=== PATIENT | female | born 1990 | race Caucasian/White ===

== ENCOUNTER 2017-10-20 12:54 | Emergency (ER) | payer BC ==
[2017-10-20 14:12] VITALS: BP 140/76
--- NOTE | 2017-10-20 14:24 | UC ---
Throat Pain/Nasal Nicolás HPI - HPI Summary HPI Summary: sore throat x 1 day pain is sever, no fever, no chills, no cold sx daughter was dx with strep yesterday - History of Current Complaint Chief Complaint: UCGeneralIllness Stated Complaint: SORE THROAT Time Seen by Provider: 10/20/17 13:54 Hx Obtained From: Patient Hx Last Menstrual Period: unknown Onset/Duration: Gradual Onset, Lasting Days - 1, Still Present Severity: Moderate Pain Intensity: 5 Cough: None Associated Signs & Symptoms: Negative: FB Sensation, Drooling, Wheezing, Hoarseness, Sinus Discomfort, Nasal Discharge, Fever, Vomiting, Rash - Allergies/Home Medications Allergies/Adverse Reactions: Allergies Allergy/AdvReac Type Severity Reaction Status Date / Time No Known Allergies Allergy Verified 10/20/17 14:05 Home Medications: Home Medications Acetaminophen 1 tab PO Q4HR PRN 10/20/17 [History Confirmed 10/20/17] Baclofen TAB* [Lioresal TAB*] 20 mg PO TID PRN 10/20/17 [History Confirmed 09/07] Oxycodone HCl 5 mg PO Q6HR PRN 10/20/17 [History Confirmed 10/20/17] l-Norgest/E.estradiol-E.estrad [Seasonique 0.15-0.03-0.01 Tab] 1 tab PO DAILY [History Confirmed 10/20/17] PMH/Surg Hx/FS Hx/Imm Hx Previously Healthy: Yes Other History Of: Negative For: HIV, Hepatitis B, Hepatitis C - Surgical History Surgical History: Yes Surgery Procedure, Year, and Place: 2011 OVARIAN CYST REMOVED; Botox injection into pelvic floor - Family History Known Family History: Positive: Seizure Disorder - Daughter has epilepsy. Negative: Renal Disease, Blood Disorder - Social History Alcohol Use: None Substance Use Type: None Smoking Status (MU): Heavy Every Day Tobacco Smoker Type: Cigarettes Amount Used/How Often: 1/2 PPD Length of Time of Smoking/Using Tobacco: 10 YRS Review of Systems Constitutional: Negative Skin: Negative Eyes: Negative ENT: Sore Throat Respiratory: Negative Cardiovascular: Negative Gastrointestinal: Negative Is Patient Immunocompromised?: No All Other Systems Reviewed And Are Negative: Yes Physical Exam Triage Information Reviewed: Yes Appearance: Well-Appearing, No Pain Distress, Well-Nourished Vital Signs: Initial Vital Signs Temp 99.1 F 10/20/17 14:07 Pulse 105 10/20/17 14:07 Resp 16 10/20/17 14:07 BP 140/76 10/20/17 14:07 Pulse Ox 97 10/20/17 14:07 Vital Signs Reviewed: Yes Eyes: Positive: Conjunctiva Clear ENT: Positive: Normal ENT inspection, Hearing grossly normal, Pharyngeal erythema, TMs normal. Negative: Nasal congestion, Nasal drainage, TM bulging, TM dull, TM red, Tonsillar swelling, Tonsillar exudate, Trismus Neck: Positive: Supple, Nontender, No Lymphadenopathy Respiratory: Positive: Chest non-tender, Lungs clear, Normal breath sounds Cardiovascular Exam: Normal Cardiovascular: Positive: RRR, No Murmur, Pulses Normal Abdominal Exam: Normal Abdomen Description: Positive: Nontender, No Organomegaly, Soft Skin Exam: Normal Throat Pain/Nasal Course/Dx - Differential Dx/Diagnosis Provider Diagnoses: strep pharyngitis Discharge - Sign-Out/Discharge Documenting (check all that apply): Discharge - Discharge Plan Condition: Stable Disposition: HOME Prescriptions: Amoxicillin PO (*) [Amoxicillin 875 MG (*)] 875 mg PO BID #20 tab Patient Education Materials: Strep Throat (ED) Referrals: Carrillo ACEVES,Kiet Purdy [Primary Care Provider] - If Needed - Billing Disposition and Condition Condition: STABLE Disposition: HOME
== END 2017-10-20 14:37 | disposition home or self-care (01) ==
LOC: UCCORT 12:54
DX: J02.0 Streptococcal pharyngitis (principal); F17.210 Nicotine dependence, cigarettes, uncomplicated
CPT/HCPCS: 87651; 99212; G0463

== ENCOUNTER 2019-06-04 08:41 | Emergency (ER) | payer BC ==
--- OUTSIDE RECORDS SUMMARY | 2019-06-04 08:49 | XMS REPORT | Continuity of Care Document ---
:1990 External Reference #:[id number] Author Name Dov Shepherd DO, MPH Address [address] [place] [address], [address] [place] [address] Care Team Providers Name Role Phone Joseph Vizcaino P.A. - Physician Actuarial Clerk Care Team Information Otc Clerk Problems Description No Information Available Social History Type Date Description Comments Sex Unknown Cigarette Use Current Cigarette Smoker 1/2 Pack Daily ETOH Use Consumes 1 glass of wine per week Tobacco Use Start: Unknown Patient is a current smoker, smokes every day Smoking Status Reviewed: 04/07/19 Patient is a current smoker, smokes every day Allergies, Adverse Reactions, Alerts Description No Known Drug Allergies Medications Active Medications SIG Qnty Indications Ordering Provider Date Oxycodone HCL si by mouth 120tabs Dov Shepherd DO, 10/09/2016 5mg every 4 to 6 MPH Tablets hours as directed chronic pain patient Baclofen 1 by mouth every Unknown 20mg Tablets 8 hours Multi Adult Gummies 1 by mouth daily Unknown Chewtabs Duloxetine HCL 1 by mouth every Unknown 60mg day Caps DR Part Immunizations Description No Information Available Vital Signs Date Vital Result Comment 04/07/2019 3:27pm BP Systolic 116 mmHg BP Diastolic 72 mmHg Heart Rate 74 /min Respiratory Rate 20 /min Height 58 inches 4'10" Weight 133.00 lb Pain Level 5 Pain at this time. Pain Level With Medicine 5 on average with meds Pain Level Without Medicine 9 without meds BMI (Body Mass Index) 27.8 kg/m2 03/04/2019 9:56am BP Systolic 140 mmHg BP Diastolic 86 mmHg Heart Rate 82 /min Respiratory Rate 20 /min Height 58 inches 4'10" Weight 135.00 lb Pain Level 9 Pain at this time. Pain Level With Medicine 7 on average with meds Pain Level Without Medicine 9 without meds BMI (Body Mass Index) 28.2 kg/m2 Results Description No Information Available Procedures Date Code Description Status 11/10/2018 81994 Therapeutic, Prophylactic Or Diagnostic Injection Subq/Im Completed Medical Devices Description No Information Available Encounters Type Date Location Provider Dx Diagnosis Office Visit 03/04/2019 Main Office as Of Dov Shepherd DO, G89.21 Chronic pain due 9:45a 08/21/13 MPH to trauma R10.2 Pelvic and perineal pain M54.5 Low back pain Z79.891 intermediate (current) use of opiate analgesic Office Visit 02/01/2019 4:00p Main Office as Dov Shepherd G89.21 Chronic pain due Of 08/21/13 DO, MPH to trauma R10.2 Pelvic and perineal pain Z79.891 intermediate (current) use of opiate analgesic M54.5 Low back pain Office Visit 01/07/2019 10:15a Main Office as Dov Shepherd G89.21 Chronic pain due Of 08/21/13 DO, MPH to trauma M54.5 Low back pain R10.2 Pelvic and perineal pain 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 Office Visit 12/09/2018 9:30a Main Office as Dov Shepherd G89.21 Chronic pain due Of 08/21/13 DO, MPH to trauma M54.5 Low back pain R10.2 Pelvic and perineal pain 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 Office Visit 11/10/2018 4:00p Main Office as Dov Shepherd G89.21 Chronic pain due Of 08/21/13 DO, MPH to trauma M54.5 Low back pain R10.2 Pelvic and perineal pain R53.83 Other fatigue Z79.891 intermediate (current) use of opiate analgesic Z71.89 Other specified counseling Office Visit 10/08/2018 3:45p Main Office as Dov Shepherd G89.21 Chronic pain due Of 08/21/13 DO, MPH to trauma M54.5 Low back pain R10.2 Pelvic and perineal pain Z79.891 intermediate (current) use of opiate analgesic Assessments Date Code Description Provider 04/07/2019 G89.21 Chronic pain due to trauma Shepherd, Dov, DO, MPH 04/07/2019 M54.5 Low back pain Shepherd, Dov, DO, MPH 04/07/2019 R10.2 Pelvic and perineal pain Shepherd, Dov, DO, MPH 04/07/2019 Z79.891 intermediate (current) use of opiate analgesic Shepherd, Dov , DO, MPH 04/07/2019 R53.83 Other fatigue Shepherd, Dov, DO, MPH 03/04/2019 G89.21 Chronic pain due to trauma Shepherd, Dov, DO, MPH 03/04/2019 R10.2 Pelvic and perineal pain Shepherd, Dov, DO, MPH 03/04/2019 M54.5 Low back pain Shepherd, Dov, DO, MPH 03/04/2019 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 Shepherd, Dov , DO, MPH 02/01/2019 G89.21 Chronic pain due to trauma Shepherd, Dov, DO, MPH 02/01/2019 R10.2 Pelvic and perineal pain Shepherd, Dov, DO, MPH 02/01/2019 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 Shepherd, Dov , DO, MPH 02/01/2019 M54.5 Low back pain Shepherd, Dov, DO, MPH 01/07/2019 G89.21 Chronic pain due to trauma Shepherd, Dov, DO, MPH 01/07/2019 M54.5 Low back pain Shepherd, Dov, DO, MPH 01/07/2019 R10.2 Pelvic and perineal pain Shepherd, Dov, DO, MPH 01/07/2019 Z79.891 intermediate (current) use of opiate analgesic Shepherd, Dov , DO, MPH 12/09/2018 G89.21 Chronic pain due to trauma Shepherd, Dov, DO, MPH 12/09/2018 M54.5 Low back pain Shepherd, Dov, DO, MPH 12/09/2018 R10.2 Pelvic and perineal pain Shepherd, Dov, DO, MPH 12/09/2018 Z79.891 intermediate (current) use of opiate analgesic Shepherd, Dov , DO, MPH 11/10/2018 G89.21 Chronic pain due to trauma Dov Shepherd DO, MPH 11/10/2018 M54.5 Low back pain Dov Shepherd DO, MPH 11/10/2018 R10.2 Pelvic and perineal pain Dov Shepherd DO, MPH 11/10/2018 R53.83 Other fatigue Dov Shepherd DO, MPH 11/10/2018 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 Symptoms and complaints discussed and reviewed today. No significant changes in physical findings. Continue current medical pain management.M54.5 Low back painComments:Chronic. Symptoms and complaints discussed and reviewed today.No changes in physical findings. Patient is stable and comfortable when current medical therapy is rendered.R10.2 Pelvic and perineal painComments:Chronic. Symptoms and complaints discussed and reviewed today. No significant changes in physical findings. Continue current medical pain management.Z79.891 intermediate (current) use of opiate analgesicNew Labs: Urine Drug Screen, Ordered: 04/07/19Comments:Urine drug screen sample taken today to monitor opiate use and to monitor use of illicit substances.Will discuss results at next appointment.The following tests were ordered:6 AM, AMPH , WILLIAM, JORDANA, BUP, CARIS, COCM, COT, ETG, FENT, MCSHSG, OPI, OXY, PCP, TAPEN, XTSY, ZOLP. A urine drug test (UDT) was ordered for this patient and collected on site today. Creatinine has been ordered as well for specimen validity, not for kidney function. Preliminary UDT results are not final and should not be used to determine patient care or plan of treatment. Initially a qualitative immunoassay screen will be done. Any inconsistent or positive findings will be further tested with a more comprehensive quantitative confirmation LCMS study. It is part of the treatment process of prescribing controlled substances and is considered standard of care.R53.83 Other fatigueComments:Symptoms and complaints discussed and reviewed today. No significant changes in physical findings. Continue current medical pain management. B12 injection administered after patient evaluated. 1ml IM for fatigue. (See Consent for injection-B12 document for lot number and expiration date.)AllComments:Continue current medical pain management; injection therapy, osteopathic manipulation, PT / modalities, and consults as needed to manage chronic pain.Non - opioid pain management discussed and optionsdiscussed.Side effects discussed; anticipatory guidance given. Patient clearly understand and agree with all medical treatments and suggestions. All medicines prescribed are adequate and appropriate for this patient's complaint of pain, medical history, physical, and personal goals.Goals of Treatment are to provide adequate and appropriate multidisciplinary medical pain management to increase/ maintain patient's quality of life and functionality while maintaining satisfactory side effect profile andminimizing senior care end-organ damage. Importance of regular nutrition throughout the day discussed.Activity as toleratedContinue with PCP Functional Status Description No Information Available Mental Status Description No Information Available Referrals Description No Information Available
--- OUTSIDE RECORDS SUMMARY | 2019-06-04 08:49 | XMS REPORT | Continuity of Care Document ---
:1990 External Reference #:[id number] Author Name Dov Shepherd DO, MPH Address [address] [place] [address], [address] [place] [address] Care Team Providers Name Role Phone Joseph Vizcaino P.A. 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 Pain Level With Medicine 5 on average with meds Pain Level Without Medicine 9 without meds BMI (Body Mass Index) 28.0 kg/m2 05/06/2019 3:35pm BP Systolic 122 mmHg BP Diastolic 70 mmHg Heart Rate 74 /min Respiratory Rate 20 /min Height 58 inches 4'10" Weight 132.00 lb Pain Level 7 Pain at this time. Pain Level With Medicine 6 on average with meds Pain Level Without Medicine 9 without meds BMI (Body Mass Index) 27.6 kg/m2 Results Description No Information Available Procedures Date Code Description Status 04/07/2019 08166 Therapeutic, Prophylactic Or Diagnostic Injection Subq/Im Completed Medical Devices Description No Information Available Encounters Type Date Location Provider Dx Diagnosis Office Visit 05/06/2019 Main Office as Of Dov Shepherd DO G89.21 Chronic pain due 3:30p 08/21/13 MPH to trauma M54.5 Low back pain R10.2 Pelvic and perineal pain Z79.891 prison (current) use of opiate analgesic Office Visit 04/07/2019 3:15p Main Office as Dov Shepherd G89.21 Chronic pain due Of 08/21/13 DO, MPH to trauma M54.5 Low back pain R10.2 Pelvic and perineal pain Z79.891 prison (current) use of opiate analgesic R53.83 Other fatigue Office Visit 03/04/2019 9:45a Main Office as Dov Shepherd G89.21 Chronic pain due Of 08/21/13 DO, MPH to trauma R10.2 Pelvic and perineal pain M54.5 Low back pain Z79.891 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 Office Visit 02/01/2019 4:00p Main Office as Dov Shepherd G89.21 Chronic pain due Of 08/21/13 DO, MPH to trauma R10.2 Pelvic and perineal pain Z79.891 prison (current) use of opiate analgesic M54.5 Low back pain Office Visit 01/07/2019 10:15a Main Office as Dov Shepherd G89.21 Chronic pain due Of 08/21/13 DO, MPH to trauma M54.5 Low back pain R10.2 Pelvic and perineal pain Z79.891 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 Office Visit 12/09/2018 9:30a Main Office as Dov Shepherd G89.21 Chronic pain due Of 08/21/13 DO, MPH to trauma M54.5 Low back pain R10.2 Pelvic and perineal pain Z79.891 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 Assessments Date Code Description Provider 06/02/2019 G89.21 Chronic pain due to trauma Shepherd, Dov, DO, MPH 06/02/2019 M54.5 Low back pain Shepherd, Dov, DO, MPH 06/02/2019 R10.2 Pelvic and perineal pain Shepherd, Dov, DO, MPH 06/02/2019 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.891 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 Shepherd, Dov , DO, MPH 05/06/2019 G89.21 Chronic pain due to trauma Shepherd, Dov, DO, MPH 05/06/2019 M54.5 Low back pain Shepherd, Dov, DO, MPH 05/06/2019 R10.2 Pelvic and perineal pain Shepherd, Dov, DO, MPH 05/06/2019 Z79.891 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 Shepherd, Dov , DO, MPH 04/07/2019 G89.21 Chronic pain due to trauma Shepherd, Dov, DO, MPH 04/07/2019 M54.5 Low back pain Shepherd, Dov, DO, MPH 04/07/2019 R10.2 Pelvic and perineal pain Shepherd, Dov, DO, MPH 04/07/2019 Z79.891 prison (current) use of opiate analgesic Shepherd, Dov , DO, MPH 04/07/2019 R53.83 Other fatigue Shepherd, Dov, DO, MPH 03/04/2019 G89.21 Chronic pain due to trauma Shepherd, Dov, DO, MPH 03/04/2019 R10.2 Pelvic and perineal pain Shepherd, Dov, DO, MPH 03/04/2019 M54.5 Low back pain Shepherd, Dov, DO, MPH 03/04/2019 Z79.891 prison (current) use of opiate analgesic Shepherd, Dov , DO, MPH 02/01/2019 G89.21 Chronic pain due to trauma Shepherd, Dov, DO, MPH 02/01/2019 R10.2 Pelvic and perineal pain Shepherd, Dov, DO, MPH 02/01/2019 Z79.891 prison (current) use of opiate analgesic Shepherd, Dov , DO, MPH 02/01/2019 M54.5 Low back pain Shepherd, Dov, DO, MPH 01/07/2019 G89.21 Chronic pain due to trauma Dov Shepherd DO MPH 01/07/2019 M54.5 Low back pain Dov Shepherd DO MPH 01/07/2019 R10.2 Pelvic and perineal pain Dov Shepherd DO MPH 01/07/2019 Z79.891 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 Symptoms [...] physical findings. Continue current medical pain management.Z79.891 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New Labs: Urine Drug Screen, Ordered: 06/02/19Comments:Urine drug screen sample taken today to monitor opiate use and to monitor use of illicit substances.Will discuss results at next appointment.The following tests were ordered:6 AM, AMPH , WILLIAM, JORDANA, BUP, CARIS, COCM, ETG, FENT, MCSHSG, OPI, OXY, PCP, TAPEN, XTSY , ZOLP. A urine drug test (UDT) was ordered for this patient and collected on site today. Creatinine has been ordered as well for specimen validity, not for kidney function. Preliminary UDT results are not final and should not be used to determine patient care or plan of treatment. Initially a qualitative immunoassay screen will bedone. Any inconsistent or positive findings will be further tested with a more comprehensive quantitative confirmation LCMS study. It is part of the treatment process of prescribing controlled substances and is considered standard of care.AllComments:Continue current medical pain management ; injection therapy, osteopathic manipulation, PT / modalities, [...] while maintaining satisfactory side effect profile andminimizing terminal make up operator end-organ damage. Importance of regular nutrition throughout the day discussed.Activity as toleratedContinue with PCP Functional Status Description No Information Available Mental Status Description No Information Available Referrals Description No Information Available
--- OUTSIDE RECORDS SUMMARY | 2019-06-04 08:49 | XMS REPORT | Continuity of Care Document ---
:1990 External Reference #:[id number] Author Name Dov Shepherd DO, MPH Address [address] [place] [address], [address] [place] [address] Care Team Providers Name Role Phone Joseph Vizcaino P.A. - Physician Sole Filler Care Team Information [employer] Problems Description No Information Available Social History Type Date Description Comments Sex Unknown Cigarette Use Current Cigarette Smoker 1/2 Pack Daily ETOH Use Consumes 1 glass of wine per week Tobacco Use Start: Unknown Patient is a current smoker, smokes every day Smoking Status Reviewed: 05/06/19 Patient is a current smoker, smokes every [...] Available Vital Signs Date Vital Result Comment 05/06/2019 3:35pm BP Systolic 122 mmHg BP Diastolic 70 mmHg Heart Rate 74 /min Respiratory Rate 20 /min Height 58 inches 4'10" Weight 132.00 lb Pain Level 7 Pain at this time. Pain Level With Medicine 6 on average with meds Pain Level Without Medicine 9 without meds BMI (Body Mass Index) 27.6 kg/m2 04/07/2019 3:27pm BP Systolic 116 mmHg BP Diastolic 72 mmHg Heart Rate 74 /min Respiratory Rate 20 /min Height 58 inches 4'10" Weight 133.00 lb Pain Level 5 Pain at this time. Pain Level With Medicine 5 on average with meds Pain Level Without Medicine 9 without meds BMI (Body Mass Index) 27.8 kg/m2 Results Description No Information Available Procedures Date Code Description Status 04/07/2019 95541 Therapeutic, Prophylactic Or Diagnostic Injection Subq/Im Completed 11/10/2018 47906 Therapeutic, Prophylactic Or Diagnostic Injection Subq/Im Completed Medical Devices Description No Information Available Encounters Type Date Location Provider Dx Diagnosis Office Visit 04/07/2019 Main Office as Of Dov Shepherd DO G89.21 Chronic pain due 3:15p 08/21/13 MPH to trauma M54.5 Low back pain R10.2 Pelvic and perineal pain 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 R53.83 Other fatigue Office Visit 03/04/2019 9:45a Main Office as Dov Shepherd G89.21 Chronic pain due Of 08/21/13 DO, MPH to trauma R10.2 Pelvic and perineal pain M54.5 Low back pain Z79.891 half-way (current) use of opiate analgesic Office Visit 02/01/2019 4:00p Main Office as Dov Shepherd G89.21 Chronic pain due Of 08/21/13 DO, MPH to trauma R10.2 Pelvic and perineal pain Z79.891 half-way (current) use of opiate analgesic M54.5 Low back pain Office Visit 01/07/2019 10:15a Main Office as Dov Shepherd G89.21 Chronic pain due Of 08/21/13 DO, MPH to trauma M54.5 Low back pain R10.2 Pelvic and perineal pain 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 Office Visit 12/09/2018 9:30a Main Office as Dov Shepherd G89.21 Chronic pain due Of 08/21/13 DO, MPH to trauma M54.5 Low back pain R10.2 Pelvic and perineal pain Z79.891 half-way (current) use of opiate analgesic Office Visit 11/10/2018 4:00p Main Office as Dov Shepherd G89.21 Chronic pain due Of 08/21/13 DO, MPH to trauma M54.5 Low back pain R10.2 Pelvic and perineal pain R53.83 Other fatigue 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 Z71.89 Other specified counseling Assessments Date Code Description Provider 05/06/2019 G89.21 Chronic pain due to trauma Shepherd, Dov, DO, MPH 05/06/2019 M54.5 Low back pain Shepherd, Dov, DO, MPH 05/06/2019 R10.2 Pelvic and perineal pain Shepherd, Dov, DO, MPH 05/06/2019 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 Shepherd, Dov , DO, MPH 04/07/2019 G89.21 Chronic pain due to trauma Shepherd, Dov, DO, MPH 04/07/2019 M54.5 Low back pain Shepherd, Dov, DO, MPH 04/07/2019 R10.2 Pelvic and perineal pain Shepherd, Dov, DO, MPH 04/07/2019 Z79.891 half-way (current) use of opiate analgesic Shepherd, Dov , DO, MPH 04/07/2019 R53.83 Other fatigue Shepherd, Dov, DO, MPH 03/04/2019 G89.21 Chronic pain due to trauma Shepherd, Dov, DO, MPH 03/04/2019 R10.2 Pelvic and perineal pain Shepherd, Dov, DO, MPH 03/04/2019 M54.5 Low back pain Shepherd, Dov, DO, MPH 03/04/2019 Z79.891 half-way (current) use of opiate analgesic Shepherd, Dov , DO, MPH 02/01/2019 G89.21 Chronic pain due to trauma Shepherd, Dov, DO, MPH 02/01/2019 R10.2 Pelvic and perineal pain Shepherd, Dov, DO, MPH 02/01/2019 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 Shepherd, Dov , DO, MPH 02/01/2019 M54.5 Low back pain Shepherd, Dov, DO, MPH 01/07/2019 G89.21 Chronic pain due to trauma Shepherd, Dov, DO, MPH 01/07/2019 M54.5 Low back pain Shepherd, Dov, DO, MPH 01/07/2019 R10.2 Pelvic and perineal pain Shepherd, Dov, DO, MPH 01/07/2019 Z79.891 half-way (current) use of opiate analgesic Dov Shepherd DO, MPH 12/09/2018 G89.21 Chronic pain due to trauma Dov Shepherd DO MPH 12/09/2018 M54.5 Low back pain Dov Shepherd DO, MPH 12/09/2018 R10.2 Pelvic and perineal pain Dov Shepherd DO, MPH 12/09/2018 Z79.891 half-way (current) use of opiate analgesic Dov Shepherd DO, MPH 11/10/2018 G89.21 Chronic pain due to trauma Dov Shepherd DO MPH 11/10/2018 M54.5 Low back pain Dov Shepherd DO, MPH 11/10/2018 R10.2 Pelvic and perineal pain Dov Shepherd DO, MPH 11/10/2018 R53.83 Other fatigue Dov Shepherd DO MPH 11/10/2018 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 Symptoms and complaints discussed and reviewed today. No significant changes in physical findings. Continue current medical pain management.M54.5 Low back painComments:Chronic. Symptoms and complaints discussed and reviewed today.No changes in physical findings. Patient is stable and comfortable when current medical therapy is rendered.R10.2 Pelvic and perineal painComments: Chronic. Symptoms and complaints discussed and reviewed today. No significant changes in physical findings. Continue current medical pain management.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New Labs:Urine Drug Screen, Ordered: 05/06/19Comments:Urine drug screen sample taken today to monitor opiate use and to monitor use of illicit substances.Will discuss results at next appointment.The following tests were ordered:6 AM, AMPH, WILLIAM, JORDANA, BUP, CARIS , COCM, ETG, FENT, MCSHSG, OPI, OXY, PCP, [...] while maintaining satisfactory side effect profile andminimizing prison end-organ damage. Importance of regular nutrition throughout the day discussed.Activity as toleratedContinue with PCP Functional Status Description No Information Available Mental Status Description No Information Available Referrals Description No Information Available
[2019-06-04 09:09] VITALS: BP 140/88
[2019-06-04 10:12] LABS: Influenza A Molecular NEGATIVE (Negative); Influenza B Molecular NEGATIVE (Negative)
--- NOTE | 2019-06-04 10:22 | UC ---
Respiratory Complaint HPI - HPI Summary HPI Summary: 28 yo female with 3-4 day hx of fever/chills/nasal congestion/cough and severe myalgias no cp or sob no n/v/d - History of Current Complaint Chief Complaint: UCGeneralIllness Stated Complaint: NAUSEA CONGESTION CHILLS/SWEATS Time Seen by Provider: 06/04/19 10:21 Hx Obtained From: Patient Hx Last Menstrual Period: doesn't get Onset/Duration: Gradual Onset, Lasting Days Timing: Constant Severity Initially: Mild Severity Currently: Moderate Pain Intensity: 0 Pain Scale Used: 0-10 Numeric Character: Cough: Nonproductive Alleviating Factors: Nothing Associated Signs And Symptoms: Positive: Fever, Chills, Nasal Congestion, Sinus Discomfort - Allergies/Home Medications Allergies/Adverse Reactions: Allergies Allergy/AdvReac Type Severity Reaction Status Date / Time No Known Allergies Allergy Verified 06/04/19 09:09 PMH/Surg Hx/FS Hx/Imm Hx Previously Healthy: Yes Other History Of: Negative For: HIV, Hepatitis B, Hepatitis C - Surgical History Surgical History: Yes Surgery Procedure, Year, and Place: 2011 OVARIAN CYST REMOVED; Botox injection into pelvic floor - Family History Known Family History: Positive: Hypertension, Seizure Disorder - Daughter has epilepsy. Negative: Renal Disease, Blood Disorder - Social History Alcohol Use: None Substance Use Type: None Smoking Status (MU): Heavy Every Day Tobacco Smoker Type: Cigarettes Amount Used/How Often: 1/2 PPD Length of Time of Smoking/Using Tobacco: 10 YRS Household Exposure Type: Cigarettes Review of Systems All Other Systems Reviewed And Are Negative: Yes Constitutional: Positive: Fever, Chills, Fatigue Skin: Positive: Negative Eyes: Positive: Negative ENT: Positive: Sore Throat, Nasal Discharge, Sinus Congestion, Sinus Pain/ Tenderness Respiratory: Positive: Cough Cardiovascular: Positive: Negative Gastrointestinal: Positive: Negative Genitourinary: Positive: Negative Motor: Positive: Negative Neurovascular: Positive: Negative Musculoskeletal: Positive: Myalgia Neurological: Positive: Negative Psychological: Positive: Negative Physical Exam Triage Information Reviewed: Yes Appearance: Well-Appearing, No Pain Distress, Well-Nourished Vital Signs: Initial Vital Signs Temp 98.9 F 06/04/19 09:07 Pulse 110 06/04/19 09:07 Resp 18 06/04/19 09:07 BP 140/88 06/04/19 09:07 Pulse Ox 100 06/04/19 09:07 Vital Signs Reviewed: Yes Eyes: Positive: Conjunctiva Clear ENT: Positive: Hearing grossly normal, Pharyngeal erythema. Negative: Nasal congestion, Nasal drainage, Trismus, Muffled voice, Hoarse voice Dental Exam: Normal Neck: Positive: Supple, Nontender, No Lymphadenopathy Respiratory: Positive: Lungs clear, Normal breath sounds, No respiratory distress Cardiovascular: Positive: RRR Musculoskeletal: Positive: ROM Intact, No Edema Neurological: Positive: Alert Psychological Exam: Normal Skin Exam: Normal Respiratory Course/Dx - Differential Dx/Diagnosis Provider Diagnosis: Viral URI with cough, Elevated BP without diagnosis of hypertension Discharge ED - Sign-Out/Discharge Documenting (check all that apply): Patient Departure All imaging exams completed and their final reports reviewed: No Studies - Discharge Plan Condition: Stable Disposition: HOME Patient Education Materials: Upper Respiratory Infection (ED) Forms: *Work Release Referrals: Kiet Vizcaino PA [Primary Care Provider] - 3 Days (if not better) Additional Instructions: BP a little high I suggest recheck in 2-12 weeks flu and strep (-) - Billing Disposition and Condition Condition: STABLE Disposition: Home
== END 2019-06-04 10:35 | disposition home or self-care (01) ==
LOC: UCCORT 08:41
DX: J06.9 Acute upper respiratory infection, unspecified (principal); R05 Cough; R03.0 Elevated blood-pressure reading, without diagnosis of hypertension; F17.210 Nicotine dependence, cigarettes, uncomplicated
CPT/HCPCS: 87651; 99211; G0463